=== PATIENT | male | born 1940 | race Caucasian/White ===

== ENCOUNTER 2017-01-30 14:02 | Outpatient (CLI) | payer MEDICARE, BC ==
[2017-01-30 15:28] LABS: #Basophils 0.1 thou/uL (0.0-0.2); #Eosinphils 0.1 thou/uL (0.0-0.7); #Lymphocytes 2.1 thou/uL (1.20-3.40); #Monocytes 0.6 thou/uL (0.11-0.59); #Neutrophils 4.9 thou/uL (1.40-6.50); %Basophils 0.7 % (0.0-1.0); %Eosinophils 1.2 % (0.0-10.0); %Lymphocytes 27.1 % (21.0-51.0); %Monocytes 8.2 % (0.0-10.0); Hematocrit 37.5 % (42.0-52.0); Mean Platelet Volume 8.5 fL (7.4-10.4); White Blood Cell (WBC) Count 7.8 thou/uL (4.8-10.8)
[2017-01-30 15:35] LABS: Prothrombin Time 13.2 SEC (12.0-14.7)
[2017-01-30 15:36] LABS: PTT 30.5 SEC (22.9-36.1)
[2017-01-30 15:37] LABS: Bilirubin Negative (Negative); Blood, Urine Negative (Negative); Glucose, Urine (Dipstick) Negative (Negative); Ketone, Urine Negative (Negative); Nitrite Negative (Negative); Protein, Urine (Dipstick) Negative (Neg-Trace); Urobilinogen 0.2 mg/dL (0.2-1.0)
[2017-01-30 15:40] LABS: Bacteria/HPF None Seen HPF (None Seen); Hyaline Casts/LPF 0-3 HYALINE CAST LPF (0-3 Hyaline); RBC/HPF 0-3 HPF (0-3); Squamous Epithelial None Seen HPF (0-3); WBC/HPF None Seen HPF (0-3)
[2017-01-30 15:48] LABS: Anion Gap 12 mmol/L (10-20); BUN (Urea Nitrogen) 18 mg/dL (8.4-25.7); Calc. Creatinine Clearance 0 mL/min (70-130); Calcium 9.8 mg/dL (7.8-10.44); Carbon Dioxide 26 mmol/L (23-31); Chloride 108 mmol/L (98-107); Estimated GFR-MDRD 74
--- NOTE | 2017-01-30 16:06 | RAD ---
TWO VIEW CHEST: History: Pre-operative evaluation. FINDINGS: Lung vernon are clear. Heart and mediastinum appear unremarkable. Post op sternotomy changes are note d. There is a prosthetic aortic valve noted. Osseous structures are unremarkable with mild degenerati ve changes in the thoracic spine. IMPRESSION: 1. Post op sternotomy change and prosthetic aortic valve. 2. No evidence of acute process. POS: [facility]
== END 2017-01-30 14:03 | disposition home or self-care (01) ==
LOC: LABBT 14:02
PROVIDERS: ATTEND Orthopaedic Surgery
DX: Z01.818 Encounter for other preprocedural examination (principal); T84.018A Broken internal joint prosthesis, other site, initial encounter; Z96.649 Presence of unspecified artificial hip joint
CPT/HCPCS: 71020; 80048; 81001; 85025; 85610; 85730; 86850; 86900; 86901; 87081

== ENCOUNTER 2017-04-29 07:43 | Outpatient (CLI) | payer MEDICARE, BC ==
--- NOTE | 2017-04-29 08:54 | CT ---
CT ABDOMEN NONCONTRAST CT PELVIS NONCONTRAST: (urolithiasis protocol) DATE: 04-29-17 HISTORY: Follow up abdominal aortic aneurysm in 76-year-old male. COMPARISON: CT angiogram of the abdomen and pelvis of 04-23-16. TECHNIQUE: IV injection of iodinated contrast media: none Oral contrast media: none FINDINGS: Other than for urolithiasis, the lack of IV and oral contrast limits the evaluation. Extensive atherosclerotic calcification of the abdominal aorta and its branches, including bilateral renal arteries, superior mesenteric artery, and all of the iliac arteries. As previously stated, ther e is fusiform ectasia of the abdominal aorta, with the greatest measurement at the aortic bifurcation , up to 2.9 cm, slightly below the threshold for definition of abdominal aortic aneurysm. There are b ilateral L5 pars interarticularis defects causing grade I anterolisthesis of L5 on S1. Severe degener ative disc disease at L5-S1. Again noted are the aneurysms of the bilateral common iliac arteries, previously described in detail. Again noted are the bilateral total hip replacement arthroplasty metallic prostheses, causing severe streak artifact, obscuring large portions of the pelvis. There is no interval change in the large, c hronic fluid collection protruding anteriorly from the right hip. No small bowel dilatation. No evide nce of pneumoperitoneum or ascites. No renal calculi. No hydronephrosis. Small amount of gas in the n ondependent portion of the urinary bladder is the only interval change since the prior CT (has there been recent bladder catheterization?). Within the limitations of a noncontrast scan, no major patholo gy identified involving the pancreas, liver, spleen, adrenals, or kidneys. No small bowel dilatation. Lung bases are grossly clear. IMPRESSION: 1. Atherosclerosis of abdominal aorta and all of its branches. 2. Multiple bilateral common iliac artery aneurysms. 3. Ectasia of abdominal aorta with diameters slightly less than the definition of aneurysm. 4. Chronic fluid collection associated with right hip. 5. 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 6. Bilateral total hip replacement arthroplasty. 7. No interval change in all of the above mentioned findings. 8. The only interval change is a small amount of gas in the urinary bladder on the current CT. 9. No obstructive uropathy. JN R POS: [facility]
== END 2017-04-29 07:44 | disposition home or self-care (01) ==
LOC: CT 07:43
PROVIDERS: ATTEND Thoracic Surgery (Cardiothoracic Vascular Surgery)
DX: I71.4 Abdominal aortic aneurysm, without rupture (principal); M47.896 Other spondylosis, lumbar region; M43.17 Spondylolisthesis, lumbosacral region; M51.36 Other intervertebral disc degeneration, lumbar region; Z96.641 Presence of right artificial hip joint
CPT/HCPCS: 74176

== ENCOUNTER 2018-05-21 10:22 | Outpatient (CLI) | payer MEDICARE, BC ==
--- NOTE | 2018-05-21 15:20 | CT ---
CT ARTERIOGRAM ABDOMEN AND PELVIS WITH AND WITHOUT IV CONTRAST WITH 3D MIP IMAGING: Date: 05/21/18 HISTORY: Aneurysm. Follow-up. COMPARISON: 04/23/16. FINDINGS: Mild atelectasis and scarring at the lung bases. Prominent degenerative changes lumbar spine. Bilater al pars defects and Grade I spondylolisthesis at the lumbosacral junction with marked disc space narr owing. Small hiatal hernia. Bilateral hip prostheses obscure most of the lower pelvis, including the urinary bladder. Prominent calcification throughout the arterial structures. Abdominal visceral arteries are patent wi th mild stenosis of each renal artery. Mild fusiform ectasia of lower abdominal aorta measuring up to 2.7 cm is stable. Multifocal dilatation of each common iliac artery is again demonstrated with an area of linear fillin g defect in the right common iliac artery suggesting a short segment dissection, similar in appearanc e to the prior study. The right common iliac artery measures up to 2.8 cm oblique diameter, where it was previously 2.6 cm. The left common iliac artery aneurysm measures up to 3.2 cm oblique diameter, where it was previously 2.9 cm. No free fluid within the retroperitoneum. IMPRESSION: 1. Slight interval enlargement of each common iliac artery aneurysm, as detailed above. 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 2. Stable CT appearance of the mild fusiform ectasia of the lower abdominal aorta. Prominent atheros clerosis. 3. Small hiatal hernia. POS: [facility]
== END 2018-05-21 10:23 | disposition home or self-care (01) ==
LOC: SCSCT 10:22
PROVIDERS: ATTEND Thoracic Surgery (Cardiothoracic Vascular Surgery)
DX: I71.4 Abdominal aortic aneurysm, without rupture (principal); I72.3 Aneurysm of iliac artery; I77.811 Abdominal aortic ectasia; I70.90 Unspecified atherosclerosis; K44.9 Diaphragmatic hernia without obstruction or gangrene
CPT/HCPCS: 74174; 82565

== ENCOUNTER 2021-04-12 11:17 | Outpatient (CLI) | payer MEDICARE, BC | END 2021-04-12 11:18 | disposition home or self-care (01) | LOC: BICCT 11:17 | PROVIDERS: ATTEND Thoracic Surgery (Cardiothoracic Vascular Surgery) | DX: I71.4 Abdominal aortic aneurysm, without rupture (principal); K57.30 Diverticulosis of large intestine without perforation or abscess without bleeding | CPT/HCPCS: 74178; 82565 ==

== ENCOUNTER 2021-11-15 10:38 | Outpatient (CLI) | payer MEDICARE, BC ==
[2021-11-15 11:29] LABS: Hemoglobin 11.7 g/dL (13.5-17.5); Mean Corpuscular Hemoglobin 30.6 pg (27.0-33.0); Mean Corpuscular Volume 92.9 fl (81.2-95.1); Mean Platelet Volume 10.6 fl (7.4-10.4); Platelet Count 177 10x3/uL (150-450); RBC Distribution Width 14.3 % (11.5-14.5); Red Blood Cell (RBC) Count 3.82 10x6/uL (4.32-5.72)
[2021-11-15 11:53] LABS: INR-International Normal Ratio 0.9; PTT 26.1 sec (22.0-33.0); Prothrombin Time 9.9 sec (9.5-12.1)
[2021-11-15 12:05] LABS: Anion Gap 12 mmol/L (10-20); BUN (Urea Nitrogen) 31 mg/dL (8.4-25.7); Calc. Creatinine Clearance 0 mL/min (70-130); Calcium 9.3 mg/dL (7.8-10.44); Carbon Dioxide 24 mmol/L (23-31); Chloride 107 mmol/L (98-107); Estimated GFR 67; Glucose 111 mg/dL (83-110); Potassium 4.4 mmol/L (3.5-5.1); Sodium 139 mmol/L (136-145)
== END 2021-11-15 10:39 | disposition home or self-care (01) ==
LOC: LABBT 10:38
PROVIDERS: ATTEND Urology
DX: Z01.818 Encounter for other preprocedural examination (principal); Z20.822 Contact with and (suspected) exposure to COVID-19
CPT/HCPCS: 80048; 85027; 85610; 85730; 87086; 87811; 93005; 93010

== ENCOUNTER 2021-11-20 05:55 | Day surgery (SDC) | payer MEDICARE, BC ==
[2021-11-19 12:50] VITALS: BMI 27.8
[2021-11-20] MEDS ORDERED: fentaNYL Citrate/PF 100 MCG/2 ML SYRINGE ONE (06:54)
[2021-11-20] MEDS ORDERED: Iopamidol 30 ML ONE ×2 (07:13→08:17)
[2021-11-20] MEDS ORDERED: Levofloxacin 500 mg/D5W 100 ml Premix Bag ONE (07:23)
[2021-11-20] MEDS ORDERED: Ketamine 50 MG/ML (10ML VIAL) ONE (07:24)
[2021-11-20] MEDS ORDERED: Lidocaine 1% MPF 2 ML VIAL ONE (07:33)
[2021-11-20] MEDS ORDERED: Ondansetron PF 4 MG/2 ML Vial ONE (07:33)
[2021-11-20] MEDS ORDERED: PROPOFOL 200 MG/20 ML VIAL ONE (07:33)
[2021-11-20] MEDS ORDERED: Dexamethasone 20 MG/5 ML VIAL ONE (07:33)
[2021-11-20] MEDS ORDERED: Ketorolac Tromethamine 30 MG/ML VIAL ONE (07:33)
[2021-11-20] MEDS ORDERED: ePHEDrine 50 MG/ML VIAL ONE (07:33)
== END 2021-11-20 18:04 | disposition home or self-care (01) ==
LOC: SDC 05:55
PROVIDERS: ATTEND Urology
PROC: 0TBB8ZX Excision of Bladder, Via Natural or Artificial Opening Endoscopic, Diagnostic (ICD-10-PCS; principal; 2021-11-20)
PROC: BT14ZZZ Fluoroscopy of Kidneys, Ureters and Bladder (ICD-10-PCS; 2021-11-20)
DX: R31.29 Other microscopic hematuria (principal); N13.1 Hydronephrosis with ureteral stricture, not elsewhere classified; N13.4 Hydroureter; E78.5 Hyperlipidemia, unspecified; I10 Essential (primary) hypertension; I48.91 Unspecified atrial fibrillation; M19.90 Unspecified osteoarthritis, unspecified site; Z85.51 Personal history of malignant neoplasm of bladder; Z87.891 Personal history of nicotine dependence; Z79.82 Long term (current) use of aspirin; Z79.899 Other long term (current) drug therapy; Z88.7 Allergy status to serum and vaccine; Z88.8 Allergy status to other drugs, medicaments and biological substances; Z91.048 Other nonmedicinal substance allergy status; Z95.1 Presence of aortocoronary bypass graft; Z95.2 Presence of prosthetic heart valve
CPT/HCPCS: 74420; 88305; J1100; J1885; J1956; J2405; J2704; J3490; Q9967

== ENCOUNTER 2021-11-27 11:29 | Outpatient (CLI) | payer MEDICARE, BC | END 2021-11-27 11:30 | disposition home or self-care (01) | LOC: LABBT 11:29 | PROVIDERS: ATTEND Urology | DX: Z20.822 Contact with and (suspected) exposure to COVID-19 (principal) | CPT/HCPCS: 87811 ==

== ENCOUNTER 2021-11-29 07:26 | Day surgery (SDC) | payer MEDICARE, BC ==
[2021-11-29 08:33] VITALS: BP 158/59; TEMP 98.2
[2021-11-29] MEDS ORDERED: Fentanyl 100 MCG/2 ML VIAL ONE (08:34)
[2021-11-29] MEDS ORDERED: Midazolam HCl 2 mg/2 ml Vial ONE (08:34)
== END 2021-11-29 12:38 | disposition home or self-care (01) ==
LOC: SPEC 07:26
PROVIDERS: ATTEND Urology
PROC: 0T9B80Z Drainage of Bladder with Drainage Device, Via Natural or Artificial Opening Endoscopic (ICD-10-PCS; principal; 2021-11-29)
DX: N13.39 Other hydronephrosis (principal); Z88.7 Allergy status to serum and vaccine; Z88.8 Allergy status to other drugs, medicaments and biological substances; Z91.048 Other nonmedicinal substance allergy status
CPT/HCPCS: 50020; 50432; 50437; 77002; C1729; J1956; J2250; J3010

== ENCOUNTER 2021-12-06 08:48 | Day surgery (SDC) | payer MEDICARE, BC ==
[2021-12-04 12:54] VITALS: BMI 27.1
[2021-12-06] MEDS ORDERED: FLU VACC QS2022-23(65YR UP)/PF 240 MCG/0.7 ML SYRINGE IM ONE (09:00)
[2021-12-06] MEDS ORDERED: Iopamidol 300 61% 50 ML VIAL FS ONE (09:12)
[2021-12-06 09:42] VITALS: BP 141/58; TEMP 98.8
[2021-12-06] MEDS ORDERED: Fentanyl 100 MCG/2 ML VIAL ONE (09:46)
[2021-12-06] MEDS ORDERED: Sodium Bicarbonate 2.5 MEQ/5 ML VIAL ONE (09:47)
[2021-12-06] MEDS ORDERED: Midazolam HCl 2 mg/2 ml Vial ONE (09:47)
== END 2021-12-06 13:00 | disposition home or self-care (01) ==
LOC: SPEC 08:48
PROVIDERS: ATTEND Urology
PROC: 0T9130Z Drainage of Left Kidney with Drainage Device, Percutaneous Approach (ICD-10-PCS; principal; 2021-12-06)
DX: N13.1 Hydronephrosis with ureteral stricture, not elsewhere classified (principal); N13.4 Hydroureter; M19.90 Unspecified osteoarthritis, unspecified site; I10 Essential (primary) hypertension; I25.10 Atherosclerotic heart disease of native coronary artery without angina pectoris; E78.5 Hyperlipidemia, unspecified; Z87.891 Personal history of nicotine dependence; Z79.82 Long term (current) use of aspirin; Z79.899 Other long term (current) drug therapy; Z88.1 Allergy status to other antibiotic agents; Z88.7 Allergy status to serum and vaccine; Z88.8 Allergy status to other drugs, medicaments and biological substances; Z91.048 Other nonmedicinal substance allergy status
CPT/HCPCS: 50431; 50694; C1729; J1956; J2250; J3010; Q9967

== ENCOUNTER 2021-12-07 14:38 | Outpatient (CLI) | payer MEDICARE, BC | END 2021-12-07 14:39 | disposition home or self-care (01) | LOC: RAD 14:38 → LABBT 14:39 | PROVIDERS: ATTEND Urology | DX: Z20.822 Contact with and (suspected) exposure to COVID-19 (principal) | CPT/HCPCS: 87811 ==

== ENCOUNTER 2021-12-11 09:55 | Day surgery (SDC) | payer MEDICARE, BC ==
[2021-12-10 14:24] VITALS: BMI 27.8
[2021-12-11 11:08] LABS: #Eosinphils 0.1 thou/uL (0.0-0.7); #Lymphocytes 1.3 thou/uL (1.20-3.40); #Monocytes 0.7 thou/uL (0.11-0.59); #Neutrophils 6.7 thou/uL (1.40-6.50); %Basophils 0.3 % (0.0-1.0); %Eosinophils 1.4 % (0.0-10.0); %Lymphocytes 14.9 % (21.0-51.0); %Monocytes 8.2 % (0.0-10.0); %Neutrophils 75.2 % (42.0-75.0); Hemoglobin 11.2 g/dL (14.0-18.0); Mean Corpuscular HGB CONC 31.9 g/dL (32.0-36.0); Mean Corpuscular Hemoglobin 30.8 pg (27.0-31.0); Mean Corpuscular Volume 96.4 fL (78.0-98.0); Mean Platelet Volume 7.6 fL (7.4-10.4); Platelet Count 224 thou/uL (130-400); RBC Distribution Width 12.5 % (11.5-14.5); Red Blood Cell (RBC) Count 3.63 mill/uL (4.70-6.10); White Blood Cell (WBC) Count 8.9 thou/uL (4.8-10.8)
[2021-12-11 11:19] LABS: Anion Gap 13 mmol/L (10-20); BUN (Urea Nitrogen) 25 mg/dL (8.4-25.7); Calc. Creatinine Clearance 67 mL/min (70-130); Calcium 9.5 mg/dL (7.8-10.44); Carbon Dioxide 24 mmol/L (23-31); Chloride 106 mmol/L (98-107); Estimated GFR 67; Glucose 123 mg/dL (83-110); Potassium 4.2 mmol/L (3.5-5.1); Sodium 139 mmol/L (136-145)
[2021-12-11] MEDS ORDERED: Iopamidol 30 ML ONE (11:38)
[2021-12-11] MEDS ORDERED: Levofloxacin 500 mg/D5W 100 ml Premix Bag ONE (11:41)
[2021-12-11] MEDS ORDERED: Fentanyl 100 MCG/2 ML VIAL ONE ×2 (11:46→13:49)
[2021-12-11] MEDS ORDERED: Lidocaine 1% PF 5 ML VIAL ONE (12:00)
[2021-12-11] MEDS ORDERED: PHENYLEPHRINE-NS 100 MCG/ML 10 ML SYRINGE ONE (12:00)
[2021-12-11] MEDS ORDERED: Rocuronium Bromide 10 MG/ML (10ML VIAL) ONE (12:00)
[2021-12-11] MEDS ORDERED: PROPOFOL 200 MG/20 ML VIAL ONE (12:00)
== END 2021-12-11 15:39 | disposition home or self-care (01) ==
LOC: SDC 09:55
PROVIDERS: ATTEND Urology
PROC: 0TB78ZX Excision of Left Ureter, Via Natural or Artificial Opening Endoscopic, Diagnostic (ICD-10-PCS; principal; 2021-12-11)
PROC: 0T778DZ Dilation of Left Ureter with Intraluminal Device, Via Natural or Artificial Opening Endoscopic (ICD-10-PCS; 2021-12-11)
DX: N13.5 Crossing vessel and stricture of ureter without hydronephrosis (principal); I10 Essential (primary) hypertension; E78.00 Pure hypercholesterolemia, unspecified; I48.91 Unspecified atrial fibrillation; Z88.8 Allergy status to other drugs, medicaments and biological substances; Z98.890 Other specified postprocedural states; Z20.822 Contact with and (suspected) exposure to COVID-19
CPT/HCPCS: 52332; 52344; 52354; 74420; 80048; 85025; C1769; C2617; 36415; 88305; 88342; J1956; J2704; J3010; Q9967

== ENCOUNTER 2021-12-26 17:05 | Observation (INO) | payer MEDICARE, BC ==
[2021-12-26 17:26] LABS: #Eosinphils 0.2 thou/uL (0.0-0.7); #Lymphocytes 2.4 thou/uL (1.20-3.40); #Monocytes 0.8 thou/uL (0.11-0.59); #Neutrophils 6.2 thou/uL (1.40-6.50); %Basophils 0.3 % (0.0-1.0); %Eosinophils 1.8 % (0.0-10.0); %Lymphocytes 24.9 % (21.0-51.0); %Monocytes 7.9 % (0.0-10.0); %Neutrophils 65.2 % (42.0-75.0); Mean Corpuscular HGB CONC 32.3 g/dL (32.0-36.0); Mean Corpuscular Volume 96.1 fl (78.0-98.0); Mean Platelet Volume 8.4 fL (7.4-10.4); Platelet Count 175 thou/uL (130-400); RBC Distribution Width 12.8 % (11.5-14.5); Red Blood Cell (RBC) Count 3.87 mill/uL (4.70-6.10); White Blood Cell (WBC) Count 9.6 thou/uL (4.8-10.8)
[2021-12-26 17:46] LABS: ALT (SGPT) 18 U/L (8-55); AST (SGOT) 18 U/L (5-34); Albumin 4.1 g/dL (3.4-4.8); Alkaline Phosphatase 89 U/L (40-110); Anion Gap 13 mmol/L (10-20); BUN (Urea Nitrogen) 35 mg/dL (8.4-25.7); Bilirubin, Total 0.5 mg/dL (0.2-1.2); CK (CPK) 60 U/L (30-200); Calc. Creatinine Clearance 0 mL/min (70-130); Calcium 9.5 mg/dL (7.8-10.44); Carbon Dioxide 24 mmol/L (23-31); Chloride 104 mmol/L (98-107); Estimated GFR 61; Globulin 2.7 g/dL (2.4-3.5); Glucose 185 mg/dL (83-110); Potassium 4.1 mmol/L (3.5-5.1); Protein, Total 6.8 g/dL (5.8-8.1); Sodium 137 mmol/L (136-145)
[2021-12-26] MEDS ORDERED: Aspirin Chewable 81 MG TAB ONE (17:59)
[2021-12-26] MEDS ORDERED: Bisacodyl 10 MG SUPP PR PRN (18:08)
[2021-12-26] MEDS ORDERED: Ondansetron PF 4 MG/2 ML Vial IVP PRN (18:08)
[2021-12-26] MEDS ORDERED: Senokot S 8.6-50 MG TAB PO PRN (18:08)
[2021-12-26] MEDS ORDERED: Ondansetron ODT 4 MG TAB PO PRN (18:08)
[2021-12-26] MEDS ORDERED: Calcium Carbonate 500 MG ChewTAB PO PRN (18:08)
[2021-12-26] MEDS ORDERED: hydrALAZINE 20 MG/ML VIAL SLOW IVP PRN (18:08)
[2021-12-26 18:30] LABS: Bacteria/HPF None Seen HPF (None Seen); Bilirubin Negative (Negative); Blood, Urine 3+ (Negative); Clarity Turbid (Clear); Glucose, Urine (Dipstick) Normal (Negative); Ketone, Urine Negative (Negative); Leukocyte 500 Leu/uL (Negative); Nitrite Negative (Negative); Protein, Urine (Dipstick) 100 mg/dL (Neg-Trace); RBC/HPF Greater than 50 HPF (0-3); Specific Gravity, Urine 1.019 (1.002-1.036); Squamous Epithelial 0-3 HPF (0-3); Urobilinogen Normal mg/dL (Less than 2); pH, Urine 5.5 (5.0-9.0)
[2021-12-26] MEDS ORDERED: Sodium Chloride 0.9% 1,000 ML IV SCH (18:59)
[2021-12-26 20:52] LABS: Magnesium 2.2 mg/dL (1.6-2.6)
[2021-12-26] MEDS ORDERED: Atorvastatin Calcium 20 MG TAB PO SCH (21:00)
[2021-12-26] MEDS: Acetaminophen 325 MG TAB PO PRN (22:11)
[2021-12-26 23:14] VITALS: BMI 27.1
[2021-12-27 05:31] LABS: #Basophils 0.1 thou/uL (0.0-0.2); #Eosinphils 0.3 thou/uL (0.0-0.7); #Lymphocytes 1.7 thou/uL (1.20-3.40); #Monocytes 0.7 thou/uL (0.11-0.59); #Neutrophils 4.2 thou/uL (1.40-6.50); %Eosinophils 4.1 % (0.0-10.0); %Lymphocytes 24.7 % (21.0-51.0); %Neutrophils 60.2 % (42.0-75.0); Hemoglobin 10.8 g/dL (14.0-18.0); Mean Corpuscular HGB CONC 32.3 g/dL (32.0-36.0); Mean Corpuscular Hemoglobin 31.6 pg (27.0-31.0); Mean Corpuscular Volume 97.6 fl (78.0-98.0); Mean Platelet Volume 8.6 fL (7.4-10.4); Platelet Count 153 thou/uL (130-400); RBC Distribution Width 12.6 % (11.5-14.5); Red Blood Cell (RBC) Count 3.41 mill/uL (4.70-6.10)
[2021-12-27 05:33] LABS: ALT (SGPT) 16 U/L (8-55); AST (SGOT) 15 U/L (5-34); Albumin 3.5 g/dL (3.4-4.8); Alkaline Phosphatase 76 U/L (40-110); Anion Gap 10 mmol/L (10-20); BUN (Urea Nitrogen) 30 mg/dL (8.4-25.7); Bilirubin, Total 0.5 mg/dL (0.2-1.2); Calc. Creatinine Clearance 77 mL/min (70-130); Calcium 8.8 mg/dL (7.8-10.44); Carbon Dioxide 25 mmol/L (23-31); Chloride 108 mmol/L (98-107); Cholesterol 116 mg/dl (< 200 Desired); Estimated GFR 78; Globulin 2.3 g/dL (2.4-3.5); Glucose 103 mg/dL (83-110); HDL Cholesterol 29 mg/dL (>60 Neg Risk); LDL Cholesterol, Calculated 71 mg/dL; Potassium 4.1 mmol/L (3.5-5.1); Protein, Total 5.8 g/dL (5.8-8.1); Sodium 139 mmol/L (136-145); Triglycerides 78 mg/dL (Less than 150)
[2021-12-27 06:05] LABS: Hemoglobin A1c 5.8 % (4.0-6.0)
[2021-12-27] MEDS ORDERED: Enoxaparin Sodium 40 MG/0.4 ML SYRINGE SC SCH (09:00)
[2021-12-27] MEDS ORDERED: Aspirin 81 mg Enteric Coated Tablet PO SCH (09:00)
[2021-12-27] MEDS ORDERED: ALPRAZolam 0.25 MG TAB PO SCH (09:00)
[2021-12-27] MEDS: Acetaminophen 325 MG TAB PO PRN (09:42)
[2021-12-27 11:56] VITALS: BP 125/59; TEMP 97.4
[2021-12-27] MEDS ORDERED: Atorvastatin Calcium 40 MG TAB PO SCH (21:00)
[2021-12-29] MEDS ORDERED: FLU VACC QS2022-23(65YR UP)/PF 240 MCG/0.7 ML SYRINGE IM ONE (09:00)
== END 2021-12-27 15:44 | disposition home or self-care (01) ==
LOC: SUATTDRO 17:05 → ERS 17:05 → NEURO 18:12
PROVIDERS: ADMIT Internal Medicine; ATTEND Internal Medicine
DX: H54.62 Unqualified visual loss, left eye, normal vision right eye (principal); R20.2 Paresthesia of skin; I48.91 Unspecified atrial fibrillation; I10 Essential (primary) hypertension; E78.5 Hyperlipidemia, unspecified; I25.10 Atherosclerotic heart disease of native coronary artery without angina pectoris; Z23 Encounter for immunization; Z86.73 Personal history of transient ischemic attack (TIA), and cerebral infarction without residual deficits; Z87.891 Personal history of nicotine dependence; Z79.82 Long term (current) use of aspirin; Z79.899 Other long term (current) drug therapy; Z88.1 Allergy status to other antibiotic agents; Z88.7 Allergy status to serum and vaccine; Z88.8 Allergy status to other drugs, medicaments and biological substances; Z91.048 Other nonmedicinal substance allergy status; Z95.1 Presence of aortocoronary bypass graft; Z20.822 Contact with and (suspected) exposure to COVID-19
CPT/HCPCS: 70450; 70551; 71045; 80053 ×2; 80061; 82550; 82962 ×2; 83036; 83735; 84484; 85025 ×2; 87086; 90662; 93005; 93880; 97535; G0008; U0003; U0005; 36415; 36416; 81003; 81015; 90471; 93010; 96372; G0378; J1650; J7050

== ENCOUNTER 2022-01-21 07:25 | Day surgery (SDC) | payer MEDICARE, BC ==
[2022-01-21] MEDS ORDERED: Iopamidol 300 61% 50 ML VIAL FS ONE (09:35)
== END 2022-01-21 09:50 | disposition home or self-care (01) ==
LOC: SPEC 07:25
PROVIDERS: ATTEND Urology
PROC: 0T25X0Z Change Drainage Device in Kidney, External Approach (ICD-10-PCS; principal; 2022-01-21)
DX: Z46.6 Encounter for fitting and adjustment of urinary device (principal); N13.1 Hydronephrosis with ureteral stricture, not elsewhere classified; I10 Essential (primary) hypertension; E78.5 Hyperlipidemia, unspecified; I25.10 Atherosclerotic heart disease of native coronary artery without angina pectoris; Z86.73 Personal history of transient ischemic attack (TIA), and cerebral infarction without residual deficits; Z88.1 Allergy status to other antibiotic agents; Z88.7 Allergy status to serum and vaccine; Z88.8 Allergy status to other drugs, medicaments and biological substances; Z91.048 Other nonmedicinal substance allergy status; Z95.1 Presence of aortocoronary bypass graft
CPT/HCPCS: 50431; 74425; C1729; Q9967

== ENCOUNTER 2022-12-10 10:22 | Day surgery (SDC) | payer MEDICARE, BC ==
[2022-12-09 09:34] VITALS: BMI 26.4
[2022-12-10] MEDS ORDERED: fentaNYL 50 mcg/mL 1 mL Vial ONE (11:55)
[2022-12-10] MEDS ORDERED: PROPOFOL 20 ML ONE (11:55)
== END 2022-12-10 14:04 | disposition home or self-care (01) ==
LOC: SDC 10:22
PROVIDERS: ATTEND Internal Medicine Cardiovascular Disease
PROC: B245ZZ4 Ultrasonography of Left Heart, Transesophageal (ICD-10-PCS; principal; 2022-12-10)
DX: I48.91 Unspecified atrial fibrillation (principal); I25.10 Atherosclerotic heart disease of native coronary artery without angina pectoris; I45.6 Pre-excitation syndrome; I10 Essential (primary) hypertension; E78.5 Hyperlipidemia, unspecified; Z87.891 Personal history of nicotine dependence; Z95.2 Presence of prosthetic heart valve; Z95.1 Presence of aortocoronary bypass graft; Z96.643 Presence of artificial hip joint, bilateral; Z96.659 Presence of unspecified artificial knee joint; Z79.01 Long term (current) use of anticoagulants; Z79.899 Other long term (current) drug therapy; Z88.7 Allergy status to serum and vaccine
CPT/HCPCS: 93312; J3010; J2704

== ENCOUNTER 2023-02-05 14:16 | Outpatient (CLI) | payer MEDICARE, BC ==
[2023-02-05 15:27] LABS: Hematocrit 37.6 % (38.8-50.0); Hemoglobin 12.2 g/dL (13.5-17.5); Mean Corpuscular HGB CONC 32.4 g/dL (32.0-36.0); Mean Corpuscular Hemoglobin 31.1 pg (27.0-33.0); Mean Corpuscular Volume 95.9 fl (81.2-95.1); Mean Platelet Volume 10.7 fl (7.4-10.4); Platelet Count 193 10x3/uL (150-450); RBC Distribution Width 14.1 % (11.5-14.5); Red Blood Cell (RBC) Count 3.92 10x6/uL (4.32-5.72)
[2023-02-05 15:48] LABS: Anion Gap 14 mmol/L (10-20); BUN (Urea Nitrogen) 26 mg/dL (8.4-25.7); Calc. Creatinine Clearance 0 mL/min (70-130); Calcium 9.4 mg/dL (7.8-10.44); Carbon Dioxide 24 mmol/L (23-31); Chloride 106 mmol/L (98-107); Estimated GFR 79; Glucose 114 mg/dL (83-110); Potassium 4.3 mmol/L (3.5-5.1); Sodium 140 mmol/L (136-145)
[2023-02-05 16:11] LABS: PTT 29.1 sec (22.0-33.0); Prothrombin Time 10.4 sec (9.5-12.1)
== END 2023-02-05 14:17 | disposition home or self-care (01) ==
LOC: LABBT 14:16
PROVIDERS: ATTEND Urology
DX: Z01.812 Encounter for preprocedural laboratory examination (principal); C67.9 Malignant neoplasm of bladder, unspecified; D49.4 Neoplasm of unspecified behavior of bladder
CPT/HCPCS: 80048; 85027; 85610; 85730; 87086

== ENCOUNTER 2023-02-10 08:08 | Day surgery (SDC) | payer MEDICARE, BC ==
[2023-02-05 14:52] VITALS: BMI 27.3
[2023-02-10] MEDS ORDERED: mitoMYcin 40 MG in Sodium Chloride 0.9% 40 ML I-VESIC SCH (08:30)
[2023-02-10] MEDS ORDERED: Ondansetron PF 4 MG/2 ML Vial ONE ×2 (09:46→10:48)
[2023-02-10] MEDS ORDERED: PROPOFOL 20 ML ONE (09:46)
[2023-02-10] MEDS ORDERED: Lidocaine 1% PF 5 ML VIAL ONE ×2 (09:46→10:48)
[2023-02-10] MEDS ORDERED: Rocuronium Bromide 10 MG/ML (10ML VIAL) ONE ×3 (09:47→10:48)
[2023-02-10] MEDS ORDERED: fentaNYL 50 mcg/mL 1 mL Vial ONE ×2 (09:47→12:05)
[2023-02-10] MEDS ORDERED: SUGAMMADEX SODIUM 200 MG/2 ML VIAL ONE (09:48)
[2023-02-10] MEDS ORDERED: LevoFLOXacin 500 mg/D5W 100 ML BAG ONE (10:30)
[2023-02-10] MEDS ORDERED: Dexamethasone 20 MG/5 ML VIAL ONE (10:48)
[2023-02-10] MEDS ORDERED: Metoclopramide HCl 10 MG/2 ML VIAL ONE (10:48)
[2023-02-10] MEDS ORDERED: PHENYLEPHRINE-NS 100 MCG/ML 10 ML SYRINGE ONE (10:48)
[2023-02-10] MEDS ORDERED: PROPOFOL 200 MG/20 ML VIAL ONE (10:48)
[2023-02-10] MEDS ORDERED: hydrALAZINE 20 MG/ML VIAL ONE (12:26)
== END 2023-02-10 14:20 | disposition home or self-care (01) ==
LOC: SDC 08:08
PROVIDERS: ATTEND Urology
PROC: 0TBB8ZZ Excision of Bladder, Via Natural or Artificial Opening Endoscopic (ICD-10-PCS; principal; 2023-02-10)
DX: C67.9 Malignant neoplasm of bladder, unspecified (principal); D49.4 Neoplasm of unspecified behavior of bladder; E78.00 Pure hypercholesterolemia, unspecified; I10 Essential (primary) hypertension; I25.10 Atherosclerotic heart disease of native coronary artery without angina pectoris; I48.91 Unspecified atrial fibrillation; Z79.899 Other long term (current) drug therapy; Z88.1 Allergy status to other antibiotic agents; Z91.048 Other nonmedicinal substance allergy status; Z88.8 Allergy status to other drugs, medicaments and biological substances
CPT/HCPCS: 52204; 52234; J0360; J3010; J9280; 88305; J1100; J1956; J2405; J2704; J2765

== ENCOUNTER 2023-11-26 09:30 | Outpatient (CLI) | payer MEDICARE, BC | END 2023-11-26 09:31 | disposition home or self-care (01) | LOC: CT 09:30 | PROVIDERS: ATTEND Thoracic Surgery (Cardiothoracic Vascular Surgery) | DX: I25.10 Atherosclerotic heart disease of native coronary artery without angina pectoris (principal); I35.0 Nonrheumatic aortic (valve) stenosis; I71.40 Abdominal aortic aneurysm, without rupture, unspecified; I72.3 Aneurysm of iliac artery | CPT/HCPCS: 74176 ==